=== PATIENT | female | born 1990 | race Caucasian/White ===

== ENCOUNTER 2016-02-07 05:55 | Inpatient (IN) | payer OTHER ==
[2016-02-07] MEDS ORDERED: CARBOPROST TROMETHAMINE 250 MCG/ML 1 ML AMP IM PRN (06:05)
[2016-02-07] MEDS ORDERED: OXYTOCIN 10 UNIT/ML 1 ML VIAL IM PRN (06:05)
[2016-02-07] MEDS ORDERED: METHYLERGONOVINE 0.2 MG/ML 1 ML AMP IM PRN (06:05)
[2016-02-07] MEDS ORDERED: TERBUTALINE 1 MG/ML VIAL SQ PRN (06:05)
[2016-02-07] MEDS ORDERED: LIDOCAINE 1% (PF) 10 MG/ML (30 ML SDV) SQ PRN (06:05)
[2016-02-07] MEDS ORDERED: ceFAZolin 2 GM in SODIUM CHLORIDE 0.9% 100 ML IVPB ONE (06:07)
[2016-02-07] MEDS ORDERED: CITRIC ACID-SODIUM CITRATE 15 ML CUP PO ONE (06:07)
[2016-02-07] MEDS ORDERED: LACTATED RINGERS 1,000 ML IV SCH (06:15)
[2016-02-07] MEDS ORDERED: OXYTOCIN 10 UNIT/ML 1 ML VIAL IM ONE (06:25)
[2016-02-07] MEDS ORDERED: ONDANSETRON 4 MG/2 ML VIAL ONE (06:25)
[2016-02-07] MEDS ORDERED: MORPHINE SULFATE (PF) 0.3 MG/0.3 ML SYR ONE (06:25)
[2016-02-07] MEDS ORDERED: KETOROLAC 30 MG/ML 1 ML VIAL ONE (06:25)
[2016-02-07] MEDS ORDERED: NALBUPHINE 10 MG/ML AMPUL ONE (06:25)
[2016-02-07 06:38] LABS: Basophils # (A) 0.1 k/uL (0-0.2); Basophils % (A) 0 %; CHCM 34.4; Eosinophils # (A) 0.4 k/uL (0-0.7); Eosinophils % (A) 2 %; HCT 34.5 % (34.0-46.0); HDW 3.08; HGB 11.7 gm/dL (11.4-16.0); Luc # (Auto) 0.32; Luc % (Auto) 2; Lymphocytes # (A) 3.8 k/uL (1.0-4.8); Lymphocytes % (A) 20 %; MCH 32.7 pg (25.0-35.0); MCHC 33.8 g/dL (31.0-37.0); MCV 96.7 fL (80.0-100.0); Mean Platelet Volume 8.4; Monocytes # (A) 0.7 k/uL (0-1.0); Monocytes % (A) 4 %; Neutrophils # (A) 14.2 k/uL (1.3-7.7); Neutrophils % (A) 73 %; RBC 3.57 m/uL (3.80-5.40); RDW 13.6 % (11.5-15.5); WBC 19.5 k/uL (3.8-10.6); WBC (Perox) 20.35
[2016-02-07] MEDS ORDERED: ONDANSETRON 4 MG/2 ML VIAL IVP PRN (07:18)
[2016-02-07] MEDS ORDERED: diphenhydrAMINE 50 MG/ML 1 ML VIAL IVP PRN ×3 (07:18→07:40)
[2016-02-07] MEDS ORDERED: NALOXONE 0.4 MG/ML 1 ML VIAL IV PRN (07:18)
[2016-02-07] MEDS ORDERED: MORPHINE SULFATE 4 MG/ML SYRINGE IVP PRN (07:18)
--- NOTE | 2016-02-07 07:25 | P.HPOB ---
History of Present Illness H&P Date: 02/07/16 Chief Complaint: Strong regular uterine contractions This is a 25-year-old 4 para 3003 EDC 02/14/2016 at 39 weeks gestation. Patient has had no care, EDC established by ultrasound earlier in the . She presents with a history of 3 previous sections, in active labor, with strong contractions every 2-3 minutes apart. She denies fluid leakage or vaginal bleeding. Past medical history is essentially negative. Past surgical history sections 3. Current medications none. ALLERGIES amoxicillin to which reports a rash. Social history patient admits to one half pack per day tobacco for 9 years, she denies alcohol or drug use patient is currently single, and unemployed. history O+, gonorrhea and chlamydia cultures negative, hepatitis B surface antigen negative, HIV testing negative, rubella status immune. On exam this is a pleasant female, 5 foot 3 inches, 130 pounds, vital signs are stable and she is afebrile. She is obviously in active labor. A brief physical exam is within normal limits. The cervix is 8 cm dilated, 100% effaced , bulging membranes, vertex presentation. heart rate consistent with reactive NST. Extremities reveal no edema. Patient has poor dentition. Chest is clear. Impression: 39 week intrauterine , active labor, no care, 3 previous C-sections, patient requesting permanent tubal sterilization. Plan: We will proceed with repeat low transverse section with tubal ligation. Consents are signed. Anesthesia is aware. We will use clindamycin prophylactically for are trace of antibiotic. Risks and benefits of this plan are reviewed with the patient and she voices understanding. Review of Systems Negative except as in HPI Past Medical History Past Medical History: No Reported History Additional Past Medical History / Comment(s): atypical pseudocholinesterase deficiency History of Any Multi-Drug Resistant Organisms: None Reported Past Surgical History: Section Additional Past Surgical History / Comment(s): x3 Past Anesthesia/Blood Transfusion Reactions: Previous Problems w/ Anesthesia Additional Past Anesthesia/Blood Transfusion Reaction / Comment(s): difficulty arousing post op x 3 days Past Psychological History: No Psychological Hx Reported Smoking Status: Current every day smoker Past Alcohol Use History: None Reported Past Drug Use History: None Reported Medications and Allergies Home Medications Medication Instructions Recorded Confirmed Type No Known Home Medications [No 01/10/14 02/07/16 History Known Home Medications] Allergies Allergy/AdvReac Type Severity Reaction Status Date / Time amoxicillin [Amoxicillin] AdvReac Rash/Hives Verified 02/07/16 06:04 Exam - Vital Signs Vital signs: Intake and Output 02/06/16 02/07/16 02/07/16 22:59 06:59 14:59 Other: Weight 58.967 kg See dictation, please Results Result Diagrams: 02/07/16 06:25 Abnormal Lab Results - Last 24 Hours (Table) 02/07/16 Range/Units 06:25 WBC 19.5 H (3.8-10.6) k/uL RBC 3.57 L (3.80-5.40) m/uL Neutrophils # 14.2 H (1.3-7.7) k/uL Assessment and Plan Plan: For repeat low transverse section and tubal ligation. Time with Patient: Less than 30
--- NOTE | 2016-02-07 07:31 | P.OP ---
Date of Procedure: 02/07/16 Preoperative Diagnosis: 39 week intrauterine , 3 previous sections, active labor. Undesired fertility. Postoperative Diagnosis: Liveborn female infant Procedure(s) Performed: Repeat low transverse section and tubal ligation Implants: Anesthesia: spinal Surgeon: Myrna Dorsey Ground Support Equipment Mechanic #1: Chilo Lewis Estimated Blood Loss (ml): 500 IV fluids (ml): 1,000 Urine output (ml): 200 Pathology: other (Placenta) Condition: stable Disposition: PACU Indications for Procedure: Operative Findings: Description of Procedure: Patient is brought to the operating suite where a spinal analgesia is administered. She's placed in the dorsal supine position with left lateral uterine displacement. The appropriate timeout is performed to assure proper patient and procedural identification. The abdomen is prepped and draped in usual sterile fashion, Werner catheter has been placed to direct drainage. Analgesia is checked and noted to be adequate. A repeat low transverse incision is made and carried down through the thin subcutaneous tissue. Fascia is isolated and scored. Fascia is opened with curved Pena scissors. Peritoneum is next identified and incised. There adhesions involving the bladder to the anterior lower uterine segment. These are taken down carefully with Metzenbaum scissors. Bladder blade is placed over the dome of the bladder. A low transverse uterine incision is made in this is carried down through the myometrium. Artificial amniorrhexis reveals clear fluid. Uterine incision is extended with blunt dissection. Infant's head is delivered in the occiput anterior position. There is no nuchal cord noted. The oropharynx, nasopharynx and external nares are bulb suctioned on the abdominal wall. Patient is officially delivered of a liveborn female at 0645 hours. Umbilical cord is doubly clamped and ligated, she is handed to waiting nurses for evaluation where scores of 9 and 9 at one and 5 minutes respectively are given. A section of cord is taken for potential gases. The placenta is delivered manually, it is inspected and noted to be intact with trivascular cord at 0648 hours. Uterus is then externalized and wiped clean with a sterile sponge. The uterus is closed in a 2 step fashion, first layer running locking, second layer imbricated. When this is completed Filshie clips are placed on the tubes in the isthmic portion. Tubes and ovaries appear normal to inspection. The uterus is gently placed back into the abdominal cavity. The abdomen is suctioned and gutters are cleaned with sponges. Uterine incision is noted to be clean and dry. Peritoneum is allowed to close by secondary intention. The fascia is closed in a running stitch of 0 Vicryl. Excellent reapproximation is noted. Subcutaneous tissue is irrigated, clean and dry.. Approximated with 3-0 Vicryl in a running fashion. Final skin closure is performed using wide clips. Dressing is applied. Uterus is massaged. Total estimated blood loss 500 mL, fluid replacement 1000 mL, urine 200 mL, clear in the tube. All sponge needle and instrument counts are correct at the end of this procedure. Patient is brought back to the recovery room in good condition with stable vital signs including pulse 75, blood pressure 108/50, respirations 18, 99% O2 saturation.
[2016-02-07] MEDS ORDERED: SIMETHICONE 80 MG CHEWABLE PO PRN (07:40)
[2016-02-07] MEDS ORDERED: ZOLPIDEM 5 MG TAB PO PRN (07:40)
[2016-02-07] MEDS ORDERED: ACETAMINOPHEN TAB 325 MG TAB PO PRN (07:40)
[2016-02-07] MEDS ORDERED: diphenhydrAMINE 25 MG CAP PO PRN (07:40)
[2016-02-07] MEDS ORDERED: diphenhydrAMINE 50 MG CAP PO PRN (07:40)
[2016-02-07] MEDS ORDERED: ACETAMINOPHEN IV (For NPO) 1,000 MG in EMPTY BAG 1 BAG IVPB ONE (07:40)
[2016-02-07] MEDS ORDERED: METOCLOPRAMIDE 5 MG/ML 2 ML VIAL IVP PRN (07:40)
[2016-02-07 07:52] VITALS: BMI 23.0
[2016-02-07] MEDS: KETOROLAC 30 MG/ML 1 ML VIAL IVP PRN (19:45)
[2016-02-07] MEDS: SENNOSIDES-DOCUSATE SODIUM 1 EACH TAB PO SCH ×2 (19:46→20:13)
[2016-02-07] MEDS ORDERED: MEASLES-MUMPS-RUBELLA VACC/PF 12,500 UNIT/0.5 ML VIAL SQ ONE (20:12)
[2016-02-08] MEDS: KETOROLAC 30 MG/ML 1 ML VIAL IVP PRN ×2 (02:10→09:05)
[2016-02-08] MEDS: OXYTOCIN 30 UNITS/500 ML NS 30 UNIT in SALINE 1 500ML.BAG IV SCH (02:32)
[2016-02-08] MEDS: LACTATED RINGERS 1,000 ML IV SCH (02:32)
[2016-02-08] MEDS: SENNOSIDES-DOCUSATE SODIUM 1 EACH TAB PO SCH ×2 (08:20→19:44)
--- NOTE | 2016-02-08 08:22 | P.PN ---
Progress Note - Text Date: 02/08/2016 Time: 707 The patient is status post section Vital signs stable VAS: 0-10 Patient has no complaints of pain. The patient incurred some minimal itching yesterday, this itching is now subsiding. Pain meds to be managed by service.
--- NOTE | 2016-02-08 08:48 | P.PN ---
Subjective Principal diagnosis: Ppost op day #1 Slept well. Minimal pain, minimal lochia. Objective - Vital Signs Vital signs: Vital Signs Temp 98.1 F 02/08/16 08:00 Pulse 84 02/08/16 08:00 Resp 18 02/08/16 08:00 BP 111/62 02/08/16 08:00 Pulse Ox 98 02/08/16 04:30 Intake & Output 02/07/16 02/08/16 02/08/16 18:59 06:59 18:59 Intake Total 400 200 Output Total 1050 100 Balance -1050 300 200 Intake: Oral 400 200 Output: Urine 1050 100 Other: # Voids 1 1 - Constitutional General appearance: Present: average body habitus, cooperative - EENT Eyes: Present: PERRLA ENT: Present: hearing grossly normal - Neck Neck: Present: normal ROM Thyroid: bilateral: normal size - Respiratory Respiratory: bilateral: CTA - Cardiovascular Rhythm: regular Heart sounds: normal: S1, S2 - Gastrointestinal General gastrointestinal: Present: normal bowel sounds - Genitourinary Genitourinary Comment(s): Incision clean and dry, intact. - Neurologic Neurologic: Present: CNII-XII intact - Musculoskeletal Musculoskeletal: Present: gait normal, strength equal bilaterally - Psychiatric Psychiatric: Present: A&O x's 3, appropriate affect, intact judgment & insight - Labs CBC & Chem 7: 02/07/16 06:25 Assessment and Plan Plan: Continue post operative care. Likely discharge home tomorrow. Time with Patient: Less than 30
[2016-02-08 09:22] LABS: Basophils % (A) 0 %; CH 32.3; CHCM 32.4; Eosinophils # (A) 0.3 k/uL (0-0.7); Eosinophils % (A) 1 %; HDW 2.91; HGB 10.5 gm/dL (11.4-16.0); Luc # (Auto) 0.11; Luc % (Auto) 1; Lymphocytes # (A) 1.8 k/uL (1.0-4.8); Lymphocytes % (A) 10 %; MCH 32.9 pg (25.0-35.0); MCHC 32.8 g/dL (31.0-37.0); MCV 100.3 fL (80.0-100.0); Mean Platelet Volume 7.6; Monocytes # (A) 0.6 k/uL (0-1.0); Monocytes % (A) 3 %; Neutrophils # (A) 16.4 k/uL (1.3-7.7); Neutrophils % (A) 85 %; RDW 13.7 % (11.5-15.5); WBC 19.2 k/uL (3.8-10.6); WBC (Perox) 20.05
[2016-02-08] MEDS: Acetaminophen-Codeine 300-30mg TAB PO PRN ×2 (12:31→19:44)
[2016-02-08] MEDS: IBUPROFEN 600 MG TAB PO PRN ×2 (17:45→23:39)
[2016-02-09] MEDS: Acetaminophen-Codeine 300-30mg TAB PO PRN ×2 (05:24→11:45)
[2016-02-09] MEDS: IBUPROFEN 600 MG TAB PO PRN (08:09)
[2016-02-09] MEDS: SENNOSIDES-DOCUSATE SODIUM 1 EACH TAB PO SCH (08:09)
--- NOTE | 2016-02-09 08:41 | P.DS ---
Providers Date of admission: 02/07/16 06:20 Expected date of discharge: 02/09/16 Attending physician: Myrna Dorsey Primary care physician: Stated None - Discharge Diagnosis(es) (1) Active labor at term Current Visit: No Status: Acute (2) delivery delivered Current Visit: No Status: Acute (3) Previous section Current Visit: No Status: Acute (4) Insufficient care Current Visit: Yes Status: Acute (5) Family planning Current Visit: Yes Status: Acute Hospital Course: This is a 25-year-old 4 para 4 woman who presented at 39 weeks gestation in advanced active labor. She had no care. Her history is significant for [address] Dorsey took her to the operating room where she underwent a repeat low transverse section with bilateral tubal ligation. Please see her operative report for complete details. The patient's postoperative course was unremarkable. She was discharged home on postoperative day #3 with routine instructions for care and follow-up. Procedures: Repeat low transverse section and bilateral tubal ligation Patient Condition at Discharge: Good Plan - Discharge Summary New Discharge Prescriptions: Acetaminophen-Codeine 300-30mg [Tylenol w/codeine #3] 2 each PO Q4HR PRN #20 tab PRN Reason: Moderate To Severe Pain Discharge Medication List Acetaminophen-Codeine 300-30mg [Tylenol w/codeine #3] 2 each PO Q4HR PRN #20 tab 02/09/16 [Rx] Follow up Appointment(s)/Referral(s): Myrna Dorsey MD [STAFF PHYSICIAN] - 2 Weeks Activity/Diet/Wound Care/Special Instructions: Follow-up in 2 weeks after surgery in the office. Call the office with any concerning signs or symptoms including fever greater than 101, severe abdominal pain, heavy vaginal bleeding, signs of wound infection, increased swelling or redness of the lower extremities, signs of depression. No driving for 2 weeks after surgery. No heavy lifting or vigorous activity until reevaluated in the office. No intercourse for 6 weeks after delivery. Discharge Disposition: HOME SELF-CARE
[2016-02-09 08:50] VITALS: BP 115/69; PULSE 78; RESP 18; TEMP 97.5
== END 2016-02-09 13:55 | disposition home or self-care (01) | DRG 766 ==
LOC: FBPOP 05:55 → 4FBP 06:20
PROVIDERS: ADMIT Obstetrics & Gynecology; ATTEND Obstetrics & Gynecology
PROC: 0UL70CZ Occlusion of Bilateral Fallopian Tubes with Extraluminal Device, Open Approach (ICD-10-PCS; principal; 2016-02-07 06:25)
PROC: 10D00Z1 Extraction of Products of Conception, Low, Open Approach (ICD-10-PCS; principal; 2016-02-07 06:25)
DX: O34.211 Maternal care for low transverse scar from previous cesarean delivery (principal); O99.334 Smoking (tobacco) complicating childbirth; Z30.2 Encounter for sterilization; Z37.0 Single live birth; Z3A.39 39 weeks gestation of pregnancy; Z88.1 Allergy status to other antibiotic agents; O09.33 Supervision of pregnancy with insufficient antenatal care, third trimester
CPT/HCPCS: 59025; 85025; 86850; 86900; 86901; 88307; 90707; 99213

== ENCOUNTER 2016-10-29 09:45 | Emergency (ER) | payer OTHER ==
[2016-10-29 09:52] VITALS: BP 118/63; PULSE 81; RESP 18; TEMP 98.3
[2016-10-29] MEDS ORDERED: DIPH,PERTUS(ACELL)TETVAC-LF 0.5 ML VIAL IM ONE (10:04)
--- NOTE | 2016-10-29 10:22 | ED ---
Wound/Laceration HPI - General Chief Complaint: Wound/Laceration Stated Complaint: Laceration left finger Time Seen by Provider: 10/29/16 09:59 Source: patient, RN notes reviewed Mode of arrival: ambulatory Limitations: no limitations - History of Present Illness Initial Comments: 26-year-old female presents emergency from she complaint laceration to her left hand index finger. Patient states she was at work cutting and states knife slipped. Patient states that she cannot move the distal part of her finger. She is unsure when her last tetanus was. - Related Data Home Medications Medication Instructions Recorded Confirmed No Known Home Medications [No 10/29/16 10/29/16 Known Home Medications] Allergies Allergy/AdvReac Type Severity Reaction Status Date / Time amoxicillin [Amoxicillin] AdvReac Rash/Hives Verified 10/29/16 10:05 Review of Systems ROS Statement: Those systems with pertinent positive or pertinent negative responses have been documented in the HPI. ROS Other: All systems not noted in ROS Statement are negative. Past Medical History Past Medical History: No Reported History Additional Past Medical History / Comment(s): atypical pseudocholinesterase deficiency History of Any Multi-Drug Resistant Organisms: None Reported Past Surgical History: Section Additional Past Surgical History / Comment(s): x3 Past Anesthesia/Blood Transfusion Reactions: Previous Problems w/ Anesthesia Additional Past Anesthesia/Blood Transfusion Reaction / Comment(s): difficulty arousing post op x 3 days Past Psychological History: No Psychological Hx Reported Smoking Status: Current every day smoker Past Alcohol Use History: None Reported Past Drug Use History: None Reported - Past Family History Mother Family Medical History: No Reported History General Exam Limitations: no limitations General appearance: alert, in no apparent distress Head exam: Present: atraumatic, normocephalic, normal inspection Respiratory exam: Present: normal lung sounds bilaterally. Absent: respiratory distress, wheezes, rales, rhonchi, stridor Cardiovascular Exam: Present: regular rate, normal rhythm, normal heart sounds. Absent: systolic murmur, diastolic murmur, rubs, gallop, clicks Extremities exam: Present: other (Left hand second digit there is a 2 cm laceration across the DIP region patient cannot fully extend her distal portion of her finger Refill is 2 seconds) Course Vital Signs 10/29/16 09:51 Temperature 98.3 F Pulse Rate 81 Respiratory 18 Rate Blood Pressure 118/63 O2 Sat by Pulse 98 Oximetry Procedures - Laceration Laceration #1 Consent Obtained: verbal consent Indication: laceration Site: hand (Left hand second digit) Size (cm): 2 Description: linear Depth: simple, single layer, involves tendon Anesthetic Used: lidocaine 1%, without epi Anesthesia Technique: local infiltration Amount (mls): 2 Pre-repair: wound explored, irrigated extensively Type of Sutures: nylon Size of Sutures: 4-0 Number of Sutures: 3 Technique: simple, interrupted Patient Tolerated Procedure: well, no complications Medical Decision Making - Medical Decision Making 18-year-old female delivered small for finger laceration. She does appear to have an injury to the tendon. Patient laceration was closed using sutures patient's finger was treated him placed in a splint patient is advised that she is follow-up with hand surgery tomorrow Dr. Grewal. Patient's tetanus was updated. Disposition Clinical Impression: Finger laceration involving tendon Disposition: HOME SELF-CARE Condition: Stable Instructions: Tendon Laceration (ED), Finger Laceration (ED) Additional Instructions: Please return to the Emergency Department if symptoms worsen or any other concerns. Referrals: None,Stated [Primary Care Provider] - 1-2 days Jak Grewal DO [Doctor of Osteopathic Medicine] - 1-2 days Time of Disposition: 10:21
== END 2016-10-29 10:51 | disposition home or self-care (01) ==
LOC: EC 09:45
DX: S61.211A Laceration without foreign body of left index finger without damage to nail, initial encounter (principal); F17.200 Nicotine dependence, unspecified, uncomplicated; Z88.0 Allergy status to penicillin; Z23 Encounter for immunization; W26.0XXA Contact with knife, initial encounter; Y92.69 Other specified industrial and construction area as the place of occurrence of the external cause; Y93.89 Activity, other specified; Y99.0 Civilian activity done for income or pay
CPT/HCPCS: 12001; 90471; 90715; 99282

== ENCOUNTER → 2019-07-15 | Outpatient (CLI) | payer OTHER | END | disposition home or self-care (01) | LOC: LABWHC1 10:14 | PROVIDERS: ATTEND Obstetrics & Gynecology | DX: Z11.59 Encounter for screening for other viral diseases (principal) ==

== ENCOUNTER → 2019-07-17 | Day surgery (SDC) | payer OTHER ==
[2019-07-15 16:02] VITALS: BMI 22.1
--- NOTE | 2019-07-16 10:37 | P.HPOB ---
History of Present Illness H&P Date: 07/16/19 Chief Complaint: Menorrhagia Liliana is a 29-year-old female with heavy vaginal bleeding. Bleeding is regular but very heavy lining was 0.1 cm indicating unlikely hyperplasia. She and I did discuss multiple alternatives including control versus progestin or congestion IUD she would prefer a permanent solution as her family planning has been completed. She is scheduled for a D&C with hysteroscopy Kang. Risks and benefits were discussed with patient in detail again and all questions were answered. Risks did include but were not limited to bleeding and infection damage to adjacent structures prickly in the face of having 4 prior C-sections there is an increased risk for thermal injury. She understands this risk and would like to proceed with the surgery. Past Medical History Past Medical History: GERD/Reflux Additional Past Medical History / Comment(s): heavy and painful periods. atypical pseudocholinesterase(pt states not aware of any "deficiency") History of Any Multi-Drug Resistant Organisms: None Reported Past Surgical History: Section Additional Past Surgical History / Comment(s): C/S x 4, surgery on left index finger-tendon repair Past Anesthesia/Blood Transfusion Reactions: Previous Problems w/ Anesthesia Additional Past Anesthesia/Blood Transfusion Reaction / Comment(s): difficulty arousing post op x 3 days after C/S Smoking Status: Current every day smoker - Past Family History Mother Family Medical History: No Reported History Medications and Allergies Home Medications Medication Instructions Recorded Confirmed Type No Known Home Medications 10/29/16 07/15/19 History Allergies Allergy/AdvReac Type Severity Reaction Status Date / Time amoxicillin [Amoxicillin] AdvReac Rash/Hives Verified 07/15/19 15:54 Exam Osteopathic Statement: *. No significant issues noted on an osteopathic structural exam other than those noted in the History and Physical/Consult. Intake and Output 07/15/19 07/16/19 07/16/19 22:59 06:59 14:59 Other: Weight 56.699 kg - OBG Physical Exam Breast: both: normal (no masses) Abdomen: bowel sounds normal, no diffuse tenderness, no bruit present, no guarding noted, no hepatomegaly, no splenomegaly, no mass Vulva: both: normal Vagina: normal moisture, no discharge Cervix: no lesion, no discharge Uterus: normal size, normal contour Adnexa: both: normal Anus/Rectum: normal perianal skin, no rectal mass, no hemorrhoids, heme negative
[~2019-07-17] MED LIST: DEXAMETHASONE SOD PHOSPHATE 10 MG/ML 1 ML VIAL IV ONE; HYDROmorphone 0.5 MG/0.5 ML SYRINGE IVP PRN; KETOROLAC 30 MG/ML 1 ML VIAL IVP ONE; LACTATED RINGERS 1,000 ML IV SCH; LIDOCAINE 1% INJ 10MG/ML (20 ML MDV) ONE; MIDAZOLAM 2 MG/2 ML VIAL IV PRN; MIDAZOLAM 2 MG/2 ML VIAL ONE; ONDANSETRON 4 MG/2 ML VIAL IVP ONE; PROPOFOL 10 MG/ML 20 ML VIAL IV ONE; Pre Op ABX Message 1 EACH MISC MISCELLANE ONE; fentaNYL (PF) 50 MCG/ML 2 ML AMP ONE
--- NOTE | 2019-07-17 10:34 | P.OP ---
Date of Procedure: 07/17/19 Preoperative Diagnosis: Menorrhagia Postoperative Diagnosis: Same Procedure(s) Performed: D&C with hysteroscopy and NovaSure Anesthesia: EBONY Surgeon: Kirit Sanderson Estimated Blood Loss (ml): 3 Pathology: other (Uterine curettings) Condition: stable Disposition: same day Operative Findings: Tissue pathology pending Description of Procedure: Patient was taken to the operating suite where a general anesthetic was found be adequate. She was prepped and draped in the normal sterile fashion and placed in the dorsal lithotomy position. Initially weighted speculum was inserted into the vagina and the anterior lip of cervix was identified and grasped with an Allis clamp. Cervix was then dilated and sounded to 8 cm. Once this was accomplished camera was inserted with no gross pathology noted. Camera was removed and sharp curettings of the endometrium were obtained. This tissue was collected placed on Telfa and sent to pathology for evaluation. NovaSure system was then inserted with a length of 4.5 and a width of 3 it was tested and passed its patency test. It was then enabled and activated. The burn lasted 97 seconds and then the NovaSure system was removed. Camera was then reinserted with excellent burn noted. Sponge, lap, needle counts were all correct 2 as all incidents were then removed. Patient was then taken to the recovery room in stable and satisfactory condition. Plan - Discharge Summary Discharge Rx Participant: Yes New Discharge Prescriptions: New Ibuprofen [Motrin] 600 mg PO Q6HR PRN #30 tab PRN Reason: Pain Discharge Medication List Ibuprofen [Motrin] 600 mg PO Q6HR PRN #30 tab 07/17/19 [Rx] Follow up Appointment(s)/Referral(s): Kirit Sanderson DO [Doctor of Osteopathic Medicine] - 2 Weeks Activity/Diet/Wound Care/Special Instructions: No heavy lifting, limit stairs and driving, and pelvic rest. If any high temperatures, heavy bleeding, or severe pain call my office Discharge Disposition: HOME SELF-CARE
[2019-07-17 10:45] VITALS: TEMP 97.8
[2019-07-17 11:05] VITALS: RESP 16
[2019-07-17 12:31] VITALS: BP 110/68; PULSE 76
== END | disposition home or self-care (01) ==
LOC: OR 08:55
PROVIDERS: ATTEND Obstetrics & Gynecology
DX: N92.0 Excessive and frequent menstruation with regular cycle (principal); K21.9 Gastro-esophageal reflux disease without esophagitis; F17.210 Nicotine dependence, cigarettes, uncomplicated; Z88.0 Allergy status to penicillin; Z98.891 History of uterine scar from previous surgery
CPT/HCPCS: 81025; 88305; 58563; J2250; J1100; J2405; J2001; J3010; J1885; J2704